=== PATIENT | male | born 1945 | race Caucasian/White ===

== ENCOUNTER 2016-06-06 15:27 | Inpatient (IN) | payer OTHER, MEDICAID ==
[~2016-06-06] VITALS: Ht 170.2 cm; Wt 74.8 kg
[~2016-06-06 15:27] MED LIST: FOLI1TAB15 PO; FURO40 PO; LACT300R PO; MULT-1192 PO; SPIR1TAB4 PO; THIA100 PO; TRAM50TA4 PO
[2016-06-06] MEDS ORDERED: HYDR-309 PO (15:39)
[2016-06-06] MEDS ORDERED: [UNRECOGNIZED DRUG - REMARK] PO (15:39)
[2016-06-06] MEDS ORDERED: HALOPERIDOL 5 MG TABLET PO PRN (18:15)
[2016-06-06] MEDS ORDERED: LORazepam 2 MG TABLET PO PRN (18:15)
[2016-06-06 18:25] LABS: BASOPHILS # (AUTO) 0.03 K/uL (0.00-0.20); BASOPHILS % (AUTO) 0.3 % (0.0-2.0); EOSINOPHILS # (AUTO) 0.02 K/uL (0.00-0.70); HEMOGLOBIN 16.7 g/dL (13.5-17.5); LYMPHOCYTES % (AUTO) 18.1 % (22.0-44.0); MEAN CORPUSCULAR HEMOGLOBIN 33.4 pg (26.0-34.0); MEAN CORPUSCULAR HGB CONC 34.8 G/dL (31.0-37.0); MEAN CORPUSCULAR VOLUME 96 fL (80-100); MONOCYTES # (AUTO) 0.7 K/uL (0.1-1.0); MONOCYTES % (AUTO) 6.2 % (2.0-9.0); NEUTROPHILS # (AUTO) 8.1 K/uL (1.8-7.7); NEUTROPHILS % (AUTO) 75.2 % (40.0-70.0); PLATELET COUNT (AUTO) 200 K/uL (150-450); RED BLOOD CELL COUNT(AUTO) 4.99 MIL/uL (4.50-5.90); RED CELL DISTRIBUTION WIDTH 14.2 % (11.5-14.5); WHITE BLOOD COUNT (AUTO) 10.8 K/uL (4.5-11.0)
[2016-06-06 18:35] LABS: ANION GAP 18 mmol/L (8-16); CALCIUM, TOTAL 8.8 mg/dL (8.8-10.5); CARBON DIOXIDE 22 mmol/L (22-29); CHLORIDE 103 mmol/L (98-107); CREATININE 1.04 mg/dL (0.60-1.30); GLOMERULAR FILTR. RATE CALC > 60 mL/min (>60); POTASSIUM 4.3 mmol/L (3.5-5.1); SODIUM SERUM 143 mmol/L (136-145); UREA NITROGEN, BLOOD 13 mg/dL (7-18)
[2016-06-06 18:40] LABS: ALANINE AMINOTRANSFERASE 491 U/L (12-78); ALBUMIN 4.5 g/dL (3.4-5.0); ASPARTATE AMINOTRANSFERASE 455 U/L (15-37); BILIRUBIN,TOTAL 1.4 mg/dL (0.1-1.0); TOTAL PROTEIN, SERUM 8.4 g/dL (6.4-8.2)
[2016-06-06] MEDS: RisperiDONE 2 MG TABLET PO SCH (21:00)
[2016-06-07] MEDS: ZOLPIDEM TARTRATE 10 MG TABLET PO PRN (01:02)
[2016-06-07] MEDS: RisperiDONE 2 MG TABLET PO SCH (09:46)
[2016-06-07 10:46] VITALS: BP 123/77
[2016-06-07 18:37] VITALS: BP 125/73
[2016-06-08 01:12] VITALS: BP 114/66
[2016-06-08] MEDS ORDERED: INFLUENZA VIRUS VACCINE QVS 2016-17 (3YR+)/PF 60 MCG/0.5 ML SYRINGE IM ONE (03:15)
[2016-06-08] MEDS ORDERED: -PHARMACY VACCINE NOTE- MISC ONE ×2 (05:45)
[2016-06-08 08:17] VITALS: BP 115/69
[2016-06-08] MEDS: RisperiDONE 2 MG TABLET PO SCH ×2 (08:58→19:17)
[2016-06-08 16:03] VITALS: BP 107/65
[2016-06-09 06:20] VITALS: BP 107/67
[2016-06-09] MEDS ORDERED: ACETAMINOPHEN 325 MG TABLET PO PRN (07:30)
[2016-06-09 08:02] VITALS: BP 118/72
[2016-06-09] MEDS: RisperiDONE 2 MG TABLET PO SCH ×2 (08:58→18:00)
[2016-06-09 09:23] VITALS: BP 116/70
[2016-06-09] MEDS: IBUPROFEN 600 MG TABLET PO PRN ×2 (09:23→20:47)
[2016-06-09 16:06] VITALS: BP 123/72
[2016-06-09 20:41] VITALS: BP 126/77
[2016-06-10 00:05] VITALS: BP 109/66
[2016-06-10] MEDS: ZOLPIDEM TARTRATE 10 MG TABLET PO PRN ×2 (00:10→20:54)
[2016-06-10 08:01] VITALS: BP 110/60
[2016-06-10] MEDS: RisperiDONE 2 MG TABLET PO SCH ×2 (09:00→16:33)
[2016-06-10 13:35] VITALS: BP 114/68
[2016-06-10] MEDS: IBUPROFEN 600 MG TABLET PO PRN (13:35)
[2016-06-10 16:07] VITALS: BP 130/85
[2016-06-11 05:42] VITALS: BP 119/96
[2016-06-11 08:02] VITALS: BP 125/77
[2016-06-11] MEDS: RisperiDONE 2 MG TABLET PO SCH ×2 (08:51→16:31)
[2016-06-11 16:01] VITALS: BP 108/74
[2016-06-11] MEDS: ZOLPIDEM TARTRATE 10 MG TABLET PO PRN (21:29)
[2016-06-12 08:00] VITALS: BP 105/66
[2016-06-12] MEDS: RisperiDONE 2 MG TABLET PO SCH ×2 (08:28→16:19)
[2016-06-12 16:03] VITALS: BP 122/71
[2016-06-12] MEDS: ZOLPIDEM TARTRATE 10 MG TABLET PO PRN (20:53)
[2016-06-13] VITALS: BP 126/84
[2016-06-13 08:18] VITALS: BP 100/60
[2016-06-13] MEDS: RisperiDONE 2 MG TABLET PO SCH ×2 (08:29→16:17)
[2016-06-13 16:04] VITALS: BP 120/70
[2016-06-13] MEDS: ZOLPIDEM TARTRATE 10 MG TABLET PO PRN (20:51)
[2016-06-14 03:45] VITALS: BP 104/65
[2016-06-14 08:02] VITALS: BP 122/77
[2016-06-14] MEDS: RisperiDONE 2 MG TABLET PO SCH (08:14)
[2016-06-14] MEDS ORDERED: RISP2TAB76 PO (11:58)
== END 2016-06-14 14:35 | disposition home or self-care (01) | DRG 885 ==
LOC: EMS 15:29 → EEVIPCON 15:29 → AHU 06-07 09:01 → B2X 06-07 17:40
PROVIDERS: ADMIT Psychiatry & Neurology Child & Adolescent Psychiatry; ATTEND Psychiatry & Neurology Child & Adolescent Psychiatry
DX: F25.0 Schizoaffective disorder, bipolar type (principal); F32.9 Major depressive disorder, single episode, unspecified; B19.20 Unspecified viral hepatitis C without hepatic coma; R79.89 Other specified abnormal findings of blood chemistry; F29 Unspecified psychosis not due to a substance or known physiological condition; G89.29 Other chronic pain; K74.60 Unspecified cirrhosis of liver; D64.9 Anemia, unspecified; F15.10 Other stimulant abuse, uncomplicated; Y90.5 Blood alcohol level of 100-119 mg/100 ml; F10.10 Alcohol abuse, uncomplicated; Z79.891 Long term (current) use of opiate analgesic; Z79.899 Other long term (current) drug therapy; Z90.49 Acquired absence of other specified parts of digestive tract; Z28.21 Immunization not carried out because of patient refusal
CPT/HCPCS: 71020; 73521; 99285; G0480

== ENCOUNTER 2020-12-30 16:34 | Emergency (ER) | payer MEDICARE, MEDICAID ==
[~2020-12-30] VITALS: Ht 170.2 cm; Wt 59.1 kg
[~2020-12-30 16:34] MED LIST changes: -FOLI1TAB15 PO; -FURO40 PO; -LACT300R PO; -MULT-1192 PO; +RISP2TAB76 PO; -SPIR1TAB4 PO; -THIA100 PO; -TRAM50TA4 PO
[2020-12-30 17:27] LABS: COVID AG,FIA SOURCE NASOPHARYNGEAL
[2020-12-30 17:28] LABS: EOSINOPHILS % (AUTO) 0.9 % (1.0-6.0); HEMATOCRIT 41.5 % (41-53); HEMOGLOBIN 13.8 g/dL (13.5-17.5); LYMPHOCYTES # (AUTO) 1.2 K/uL (1.0-4.8); LYMPHOCYTES % (AUTO) 15.5 % (22.0-44.0); MEAN CORPUSCULAR HEMOGLOBIN 32.1 pg (26.0-34.0); MEAN CORPUSCULAR HGB CONC 33.3 G/dL (31.0-37.0); MEAN CORPUSCULAR VOLUME 96 fL (80-100); MONOCYTES # (AUTO) 0.8 K/uL (0.1-1.0); MONOCYTES % (AUTO) 11.2 % (2.0-9.0); NEUTROPHILS # (AUTO) 5.4 K/uL (1.8-7.7); NEUTROPHILS % (AUTO) 71.4 % (40.0-70.0); PLATELET COUNT (AUTO) 210 K/uL (150-450); RED CELL DISTRIBUTION WIDTH 14.3 % (11.5-14.5)
[2020-12-30 17:41] LABS: ANION GAP 6 mmol/L (8-16); CALCIUM, TOTAL 8.7 mg/dL (8.8-10.5); CARBON DIOXIDE 26 mmol/L (22-29); CHLORIDE 106 mmol/L (98-107); CREATININE 0.94 mg/dL (0.60-1.30); GLUCOSE,RANDOM 120 mg/dL (70-110); POTASSIUM 4.1 mmol/L (3.5-5.1); SODIUM SERUM 138 mmol/L (136-145); UREA NITROGEN, BLOOD 26 mg/dL (7-18)
[2020-12-30 17:42] LABS: GLOMERULAR FILTR. RATE CALC > 60 mL/min (>60)
[2020-12-30 17:47] LABS: LACTIC ACID 1.8 mmol/L (0.4-2.0)
[2020-12-30 17:51] LABS: D-DIMER 0.81 mg/L FEU (0.00-0.50); INR 1.1 (0.9-1.1); PROTHROMBIN TIME 11.7 SEC (9.4-11.6)
[2020-12-30 17:57] LABS: ALANINE AMINOTRANSFERASE 57 U/L (12-78); ALBUMIN 2.3 g/dL (3.4-5.0); ALKALINE PHOSPHATASE 186 U/L (46-116); ASPARTATE AMINOTRANSFERASE 47 U/L (15-37); BILIRUBIN,TOTAL 0.6 mg/dL (0.1-1.0); CREATINE KINASE, TOTAL ONLY 62 U/L (39-308); FERRITIN 557 ng/mL (26-388); LACTATE DEHYDROGENASE 154 U/L (85-227); PHOSPHORUS 3.2 mg/dL (2.5-4.9); TOTAL PROTEIN, SERUM 7.4 g/dL (6.4-8.2)
[2020-12-30 18:39] LABS: ERYTHROCYTE SEDIMENTATION RATE 48 MM/HR (0-15)
[2020-12-30 18:48] VITALS: BP 102/62
== END 2020-12-30 20:45 | disposition home or self-care (01) ==
LOC: EMS 16:37
DX: U07.1 COVID-19 (principal); F32.9 Major depressive disorder, single episode, unspecified; F17.210 Nicotine dependence, cigarettes, uncomplicated
CPT/HCPCS: 71045; 80053; 82550; 82728; 83605; 83615; 83735; 84100; 84145; 84484; 85025; 85379; 85610; 85651; 85730; 93005; 99285; 36415-L1; 36415-TC

== ENCOUNTER 2023-03-18 07:30 | Emergency (ER) | payer MEDICARE, MEDICAID ==
[~2023-03-18] VITALS: Ht 170.2 cm; Wt 72.7 kg
[2023-03-18 07:38] VITALS: TEMP 97.8
[2023-03-18] MEDS ORDERED: TAMS0.4C94 PO (08:31)
[2023-03-18 08:54] LABS: APPEARANCE,URINE HAZY (CLEAR); BILIRUBIN,URINE NEGATIVE (NEGATIVE); COLOR,URINE LIGHT ORANGE (YELLOW); GLUCOSE, URINE (UA) NEGATIVE (NEGATIVE); KETONES,URINE NEGATIVE (NEGATIVE); LEUKOCYTE ESTERASE ,URINE LARGE (NEGATIVE); NITRATE,URINE NEGATIVE (NEGATIVE); OCCULT BLOOD,URINE LARGE (NEGATIVE); PH,URINE 5.5 (5.0-8.0); PROTEIN,URINE 100-200,SEE CONFIRM mg/dL (NEGATIVE); UROBILINOGEN,URINE <=1.0 mg/dL (<=1.0)
[2023-03-18] MEDS ORDERED: CEPH-558 PO (09:19)
[2023-03-18 09:26] VITALS: BP 123/69; PULSE 61; RESP 16
[2023-03-18 09:37] LABS: SULFOSALICYLIC ACID,URINE 3+ (Negative)
[2023-03-18 09:39] LABS: RBC,URINE 51-100 /HPF (0-2); WBC,URINE 51-100 /HPF (0-5)
[2023-03-18 09:40] LABS: BACTERIA,URINE Many /HPF (None Seen)
== END 2023-03-18 09:31 | disposition home or self-care (01) ==
LOC: EMS 08:00
DX: N39.0 Urinary tract infection, site not specified (principal); F10.20 Alcohol dependence, uncomplicated; F32.A Depression, unspecified; F17.210 Nicotine dependence, cigarettes, uncomplicated; Z46.6 Encounter for fitting and adjustment of urinary device; Z90.49 Acquired absence of other specified parts of digestive tract
CPT/HCPCS: 81001; 81002; 87086; 87186; 99283

== ENCOUNTER 2023-09-10 01:09 | Emergency (ER) | payer MEDICARE, MEDICAID ==
[~2023-09-10 01:09] MED LIST changes: +CEPH-558 PO; +TAMS0.4C94 PO
[2023-09-10 01:30] VITALS: BP 151/90; PULSE 116; RESP 20; TEMP 97.9
[2023-09-10 02:08] LABS: APPEARANCE,URINE CLEAR (CLEAR); BILIRUBIN,URINE NEGATIVE (NEGATIVE); COLOR,URINE LIGHT YELLOW (YELLOW); GLUCOSE, URINE (UA) NEGATIVE (NEGATIVE); KETONES,URINE NEGATIVE (NEGATIVE); LEUKOCYTE ESTERASE ,URINE NEGATIVE (NEGATIVE); NITRATE,URINE NEGATIVE (NEGATIVE); OCCULT BLOOD,URINE LARGE (NEGATIVE); PROTEIN,URINE NEGATIVE (NEGATIVE); SPECIFIC GRAVITIY, URINE 1.008 (1.003-1.030); UROBILINOGEN,URINE <=1.0 mg/dL (<=1.0)
[2023-09-10 02:24] LABS: BACTERIA,URINE None Seen /HPF (None Seen); SQUAMOUS EPITHELIAL CELL,UR None Seen /LPF (None Seen); WBC,URINE None Seen /HPF (0-5)
== END 2023-09-10 03:27 | disposition still patient (30) ==
LOC: EMS 01:09
DX: R33.9 Retention of urine, unspecified (principal); F17.210 Nicotine dependence, cigarettes, uncomplicated
CPT/HCPCS: 51702; 81001; 99284; Z7502

== ENCOUNTER 2023-09-11 18:00 | Emergency (ER) | payer MEDICARE, MEDICAID ==
[~2023-09-11] VITALS: Ht 170.2 cm; Wt 76.4 kg
[2023-09-11 22:05] VITALS: BP 127/72; PULSE 70; RESP 16; TEMP 98.3
== END 2023-09-11 22:30 | disposition home or self-care (01) ==
LOC: EMS 18:00
DX: T83.018A Breakdown (mechanical) of other urinary catheter, initial encounter (principal); F10.20 Alcohol dependence, uncomplicated; F32.A Depression, unspecified; F17.210 Nicotine dependence, cigarettes, uncomplicated; Z90.49 Acquired absence of other specified parts of digestive tract
CPT/HCPCS: 82962; 99282